=== PATIENT | male | born 1965 | race Caucasian/White ===

== ENCOUNTER 2021-11-15 17:29 | Outpatient (CLI) | payer SELFPAY ==
[2021-11-15 17:51] VITALS: BP 124/78; PULSE 79; RESP 16; TEMP 36.8; O2SAT 95; BMI 27.9
[2021-11-15] MEDS: 0.9% Saline Lock 10 ML Syringe IV (17:57)
[2021-11-15 18:28] VITALS: BP 121/81; PULSE 81; RESP 16; TEMP 37.1; O2SAT 96
[2021-11-15 19:14] VITALS: BP 139/82; PULSE 98; RESP 16; TEMP 37.2; O2SAT 99
== END 2021-11-15 19:28 | disposition home or self-care (01) ==
LOC: MS3OUT 17:30 → MS3 17:30
PROVIDERS: Referring Provider Nurse Practitioner Adult Health; Visit Provider Nurse Practitioner Adult Health
DX: Z23 Encounter for immunization (principal); U07.1 COVID-19
CPT/HCPCS: J7050; M0245; Q0245; A4216